=== PATIENT | male | born 1995 | race Caucasian/White ===

== ENCOUNTER 2016-12-22 16:26 | Emergency (ER) | payer BC ==
[2016-12-22 18:19] VITALS: BP 102/66
[2016-12-22] MEDS ORDERED: Ibuprofen TAB* 600 MG PO ONE (18:42)
--- NOTE | 2016-12-22 18:42 | UC ---
Throat Pain/Nasal Santy HPI - HPI Summary HPI Summary: cough, congestion, hoarse voice, ST, runny nose, chills, subjective fever x 2 days - History of Current Complaint Chief Complaint: UCRespiratory Stated Complaint: FLU LIKE Time Seen by Provider: 12/22/16 18:31 Hx Obtained From: Patient Onset/Duration: Gradual Onset, Lasting Days, Still Present Severity: Moderate Pain Intensity: 8 Pain Scale Used: 0-10 Numeric Cough: Nonproductive Associated Signs & Symptoms: Positive: Dysphagia, Hoarseness, Sinus Discomfort, Nasal Discharge, Fever Related History: Seasonal Allergies - Epiglottits Risk Factors Epiglottis Risk Factors: Negative - Allergies/Home Medications Allergies/Adverse Reactions: Allergies Allergy/AdvReac Type Severity Reaction Status Date / Time Amoxicillin Allergy Hives Verified 12/22/16 18:20 Clavulanic Acid Allergy Hives Verified 12/22/16 18:20 [From Augmentin] Home Medications: Home Medications Cetirizine* [ZyrTEC 10 MG TAB*] 10 mg PO DAILY 12/22/16 [History Confirmed 12/22] [id number] [Theraflu Cold & Cough] 1 federico PO ONCE PRN 12/22/16 [History Confirmed 12/22/16] PMH/Surg Hx/FS Hx/Imm Hx Previously Healthy: No - allergies - Surgical History Surgical History: Yes Surgery Procedure, Year, and Place: left acl repair. T&A - Family History Known Family History: Positive: Diabetes - Social History Occupation: Student Alcohol Use: Weekly Substance Use Type: None Smoking Status (MU): Never Smoked Tobacco Review of Systems Constitutional: Fever ENT: Sore Throat, Ear Ache, Nasal Discharge Respiratory: Negative Cardiovascular: Negative Gastrointestinal: Other - nauseous Genitourinary: Negative Motor: Negative Neurovascular: Negative Musculoskeletal: Negative Neurological: Negative Psychological: Negative All Other Systems Reviewed And Are Negative: Yes Physical Exam Triage Information Reviewed: Yes Appearance: Well-Nourished, Ill-Appearing, Pain Distress Vital Signs: Initial Vital Signs Temp 100.8 F 12/22/16 18:16 Pulse 96 12/22/16 18:16 Resp 14 12/22/16 18:16 BP 102/66 12/22/16 18:16 Pulse Ox 98 12/22/16 18:16 temp noted Vital Signs Reviewed: Yes Eyes: Positive: Conjunctiva Clear ENT: Positive: Hearing grossly normal, Pharyngeal erythema, Nasal drainage, TMs normal, Muffled/hoarse voice Neck: Positive: Supple, Nontender, No Lymphadenopathy Respiratory: Positive: Lungs clear, Normal breath sounds, No respiratory distress Cardiovascular: Positive: RRR, No Murmur, Pulses Normal, Brisk Capillary Refill Abdomen Description: Positive: Nontender, No Organomegaly, Soft. Negative: Distended, Guarding, Hepatomegaly, McBurney's Point Tenderness, Peritoneal Signs , Splenomegaly Bowel Sounds: Positive: Present Musculoskeletal: Positive: Strength Intact, ROM Intact Neurological: Positive: Alert, Muscle Tone Normal Psychological Exam: Normal Skin Exam: Normal Throat Pain/Nasal Course/Dx - Course Course Of Treatment: rapid strep neg. rapid influenza neg - Differential Dx/Diagnosis Differential Diagnosis/HQI/PQRI: Influenza, Laryngitis, Pharyngitis, Sinusitis, Tonsillitis, URI Provider Diagnoses: viral syndrome. laryngitis Discharge - Discharge Plan Condition: Stable Disposition: HOME Prescriptions: Pseudoephedrine HCL ER TAB* [Sudafed 12 Hour*] 120 mg PO BID #[id number] tab.er Patient Education Materials: Laryngitis (ED), Viral Syndrome (ED) Forms: *School Release Referrals: Non Staff,Doctor [Primary Care Provider] - Additional Instructions: Dr. Walker recommends salt water gargles. 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 You may also want to try Cepacol throat lozenges that are medicated and can soothe the throat. Return to urgent care if your fever persists until Sunday12/25/16, or if you develop new or worsening symptoms.
== END 2016-12-22 19:44 | disposition home or self-care (01) ==
LOC: UCCORT 16:26
DX: B34.9 Viral infection, unspecified (principal); J04.0 Acute laryngitis; Z88.1 Allergy status to other antibiotic agents; Z88.0 Allergy status to penicillin
CPT/HCPCS: 87502; 87651; 99212; A9270-GY; G0463